=== PATIENT | female | born 1955 | race Caucasian/White ===

== ENCOUNTER 2018-09-14 09:35 | Day surgery (SDC) | payer OTHER ==
[2018-09-12 09:53] VITALS: BMI 26.2
[2018-09-14] MEDS ORDERED: EPINEPHrine 1:1,000 1 MG/1 ML - 30ML VIAL (INJECTION) ONE (13:47)
[2018-09-14] MEDS ORDERED: methylPREDNISolone ACET (DEPO) 40 MG/1 ML VIAL ONE ×2 (13:47→16:07)
[2018-09-14] MEDS ORDERED: BUPIVACAINE HCL/PF 2.5 MG/ML - 30 ML VIAL IJ ONE (13:47)
[2018-09-14] MEDS ORDERED: MIDAZOLAM HCL 2 MG/2 ML SINGLE DOSE VIAL ONE (14:43)
[2018-09-14] MEDS ORDERED: ONDANSETRON 4 MG/2 ML VIAL ONE ×2 (14:43→16:42)
[2018-09-14] MEDS ORDERED: KETOROLAC TROMETHAMINE 30 MG/1 ML VIAL ONE (14:43)
[2018-09-14] MEDS ORDERED: LIDOCAINE HCL 2% JELLY (5 ML/TUBE) ONE (14:43)
[2018-09-14] MEDS ORDERED: ceFAZolin SODIUM 1 GM VIAL ONE (14:43)
[2018-09-14] MEDS ORDERED: PROPOFOL 20 ML ONE ×2 (14:43)
[2018-09-14] MEDS ORDERED: LIDOCAINE HCL/PF 2% SDV 5ML VIAL ONE (14:43)
[2018-09-14] MEDS ORDERED: PROMETHAZINE HCL 25 MG/1 ML VIAL IVPUSH PRN (16:24)
[2018-09-14] MEDS ORDERED: ONDANSETRON 4 MG/2 ML VIAL IVPUSH PRN (16:24)
[2018-09-14] MEDS ORDERED: oxyCODONE HCL 5 MG TABLET PO PRN ×2 (16:24)
--- NOTE | 2018-09-14 16:25 | OP ---
Operative Note - Note: Operative Date: 09/14/18 Pre-Operative Diagnosis: Chondrocalcinosis left knee Operation: 1. Surgical arthroscopy left knee. 2. Irrigation & debridement Findings: 1. 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
--- NOTE | 2018-09-14 16:27 | PN ---
Progress Note (short form) - Note Progress Note: 50F s/p SALK POD #0. -Pain control. -WBAT LLE. -f/u post-op trial of void. -Diet as tolerated. -Keep dressing clean & dry; d/c on Monday & place waterproof Band-Aids over incision sites. -Cane vs crutches. -f/u [facility] [place] office 09/21/2017; call for appointment; . Dayton Sharif MD (Orthopaedic Surgery).
[2018-09-14 18:17] VITALS: TEMP 97.8
[2018-09-14] MEDS ORDERED: oxyCODONE HCL 5 MG TABLET ONE (18:19)
[2018-09-14 19:24] VITALS: BP 108/65; PULSE 77
--- NOTE | 2018-09-14 23:22 | OP ---
Date of Operation: 09/14/2018 Surgeon: Dayton Sharif MD Pre-Operative Diagnosis: 1. Left knee chondrocalcinosis Post-Operative Diagnosis: Left knee: 1. Chondrocalcinosis 2. Tricompartment arthritis Surgical Procedure: Left knee: 1. Surgical arthroscopy 2. Irrigation 3. Debridement 4. Intra-articular (large joint) injection with 5cc 0.25% Marcaine and 2cc depomedrol (40mg/mL). Anesthesiologist: Carlos Barraza MD Anesthesia: General, LMA. Position: Supine. Incision: Standard anteromedial & anterolateral knee arthroscopy portals. Tourniquet Pressure: 250mmHg. Tourniquet Time: 27 minutes. Estimated Blood Loss: 0cc. Intravenous Fluid: 300cc crystalloid. Specimens: None. Drains: None. Complications: None. Urine output: None. Bacteriology: None. Transfusions: None. Closure: 3-0 Nylon. 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 The patient was identified in the holding area by her armband. A long discussion was held with the patient regarding the risks, benefits and alternatives of the above-named procedure. Risks include but are not limited to: pain, bleeding, infection, damage to surrounding structures (including nerves, blood vessels, skin, ligaments, tendons and bone), wound complications, need for further surgery, blood clots, myocardial infarction, pulmonary embolism, anaesthesia complications, compartment syndrome, limb loss, limp, loss of function, and . Benefits as mentioned above. Alternatives include no surgery. All questions were answered. The patient and her family understood and agreed to the procedure. Informed consent was obtained, witnessed and verified. The patients correct operative limb - the left lower extremity - was marked, and the patient was taken to the operating room after being seen by the anesthesia and nursing staff. Procedure: The patient was brought into the operating room, placed on the OR table and secured with a safety strap. Consent and the operative site was again verified with the patient and nursing and anaesthesia staff. Anaesthesia and antibiotics were then administered without complication. A time out was done led by me, the attending surgeon. The patient was positioned with bony prominences well padded, and a tourniquet was placed proximally and set to 250mmHg. A lateral leg post was assembled. The operative limb was prepped in standard sterile fashion using betadine prep & scrub, wiped off with alcohol, and then DuraPrep applied. The operative limb was then free draped. Time out was again done, the limb was exsanguinated using an Esmarch, the tourniquet was inflated, and the case began. Surface anatomy of the knee was drawn, marking the patella, patellar tendon, and medial & lateral joint lines. With the knee flexed to 45 degrees, a standard anterolateral arthroscopy portal was made using an 11 blade. A blunt trocar was then inserted into the knee at the same angle as the incision. The blunt trocar was then slipped into the suprapatellar pouch as the knee was slowly extended. The trocar was removed through its overlying canula, and the arthroscope was inserted in its place. The fluid inflow, which had already been primed, was then attached to the canula along with the outflow suction tubing. The knee was then insufflated with normal saline solution. The suprapatellar pouch was then inspected and robust synovitis was seen. No loose bodies were seen. The medial & lateral retro-patellar surfaces revealed Outerbridge Grade 3-4 chondromalacia with bone exposed. The trochlear groove demonstrated Outerbridge Grade 2 chondromalacia with superficial fissures. The patellofemoral articulation appeared otherwise congruous. Next, the arthroscope was delivered into the medial gutter of the knee as the knee was slowly flexed. No loose bodies were seen. With gentle valgus force applied to the knee, the arthroscope was slipped into the medial compartment. Grade 3 chondromalacia of the medial femoral condyle was seen with deep fissuring. Osteophyte was noted on the medial border of the medial femoral condyle. The medial meniscus appeared intact however, chondrocalcinosis of the meniscus was seen. Grade 2 chondromalacia of the medial tibial plateau was seen with superficial fissuring. Next, the arthroscope was delivered into the intercondylar notch. The ACL was visualized and appeared intact. The PCL was not visualized. Gentle varus stress was applied to the knee as the arthroscope was delivered into the lateral compartment of the knee. Grade 2 chondromalacia of the medial femoral condyle was seen with superficial fissuring. The lateral meniscus appeared degenerative, however, no discrete tear was identified. Chondrocalcinosis of the meniscus was seen. The medial tibial plateau appeared intact. The arthroscope was then delivered into the lateral gutter of the knee where no loose bodies were seen. The arthroscope was then returned to the suprapatellar pouch as the knee was gently extended. The knee was irrigated with 3.5L of normal saline solution. All fluid was suctioned out of the knee. An intra-articular injection consisting of 5mL of 0.25% Marcaine with 2mL of Depo-Medrol (40 mg/mL) was injected into the knee. Hemostasis was assured, and the incisions were closed primarily using 3-0 nylon sutures in figure-8 fashion. Xeroform and a sterile, compressive dressing was applied. The tourniquet was released at a final time of 27 minutes. The sponge and needle counts were correct at the end of the case and I the attending was present and scrubbed throughout the case. The patient was then transferred to the recovery room in stable condition, as per the anesthesiology team, having tolerated the procedure well. Intra-operative photographs were captured using the arthroscope at numerous steps throughout the case. MD MAYA [id number] [id number]
== END 2018-09-14 19:10 | disposition home or self-care (01) ==
LOC: FASU 09:35
PROVIDERS: ATTEND Orthopaedic Surgery Adult Reconstructive Orthopaedic Surgery
PROC: 0SBD4ZZ Excision of Left Knee Joint, Percutaneous Endoscopic Approach (ICD-10-PCS; 2018-09-14)
PROC: 3E0U3NZ Introduction of Analgesics, Hypnotics, Sedatives into Joints, Percutaneous Approach (ICD-10-PCS; 2018-09-14)
PROC: 0S9D4ZZ Drainage of Left Knee Joint, Percutaneous Endoscopic Approach (ICD-10-PCS; principal; 2018-09-14 15:52)
DX: M11.262 Other chondrocalcinosis, left knee (principal); M13.862 Other specified arthritis, left knee
CPT/HCPCS: 94760